=== PATIENT | male | born 1955 | race Caucasian/White ===

== ENCOUNTER 2022-04-17 12:02 | Outpatient (CLI) | payer BC | END 2022-04-17 12:03 | disposition home or self-care (01) | LOC: ULT 12:02 | PROVIDERS: ATTEND Family Medicine Sports Medicine | DX: R14.0 Abdominal distension (gaseous) (principal); I08.1 Rheumatic disorders of both mitral and tricuspid valves | CPT/HCPCS: 93306 ==

== ENCOUNTER 2022-05-02 08:06 | Outpatient (CLI) | payer BC | END 2022-05-02 08:07 | disposition home or self-care (01) | LOC: ULT 08:06 | PROVIDERS: ATTEND Family Medicine Sports Medicine | DX: R14.0 Abdominal distension (gaseous) (principal); K76.0 Fatty (change of) liver, not elsewhere classified; R16.1 Splenomegaly, not elsewhere classified; R18.8 Other ascites | CPT/HCPCS: 76700 ==